=== PATIENT | female | born 1960 | race Caucasian/White ===

== ENCOUNTER 2018-03-20 09:26 | Emergency (ER) | payer OTHER ==
[~2018-03-20] VITALS: Ht 167.6 cm; Wt 101.6 kg
[2018-03-20 09:36] VITALS: BP 133/67
--- NOTE | 2018-03-20 09:43 | NUR ---
PT AMBULATES TO BED 9
--- NOTE | 2018-03-20 09:46 | NUR ---
gave report to Breanna ONEAL
--- NOTE | 2018-03-20 09:46 | NUR ---
PT MOVED TO BED 6
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
--- NOTE | 2018-03-20 10:03 | NUR ---
Patient being evaluated by physician at bedside.
[2018-03-20] MEDS ORDERED: NACL 0.9% 1,000 ML IV SCH (10:37)
[2018-03-20] MEDS ORDERED: METOCLOPRAMIDE 10 MG/2 ML INJ VIAL IVP ONE (10:40)
[2018-03-20] MEDS ORDERED: KETOROLAC 30 MG/ML VIAL IVP ONE (10:40)
--- NOTE | 2018-03-20 11:09 | NUR ---
ultrasound at bedside
[2018-03-20 11:23] LABS: BASOPHILS % (AUTO) 0.5 % (0.0-2.0); EOSINOPHILS # (AUTO) 0.2 K/uL (0-0.4); EOSINOPHILS % (AUTO) 2.6 % (0.0-4.0); HEMATOCRIT 42.5 % (36-48); HEMOGLOBIN 14.2 g/dL (12.0-16.0); LYMPHOCYTES # (AUTO) 1.3 K/uL (2.5-16.5); LYMPHOCYTES % (AUTO) 15.6 % (20.5-51.1); MEAN CORPUSCULAR HEMOGLOBIN 32 pg (27-31); MEAN CORPUSCULAR HGB CONC 34 g/dL (33-37); MONOCYTES # (AUTO) 0.4 K/uL (0.8-1.0); MONOCYTES % (AUTO) 5.4 % (1.7-9.3); NEUTROPHILS # (AUTO) 6.2 K/uL (1.8-7.7); NEUTROPHILS % (AUTO) 75.9 % (42.2-75.2); PLATELET COUNT (AUTO) 206 K/uL (140-450); RED BLOOD CELL COUNT(AUTO) 4.47 MIL/uL (4.20-5.40); RED CELL DISTRIBUTION WIDTH 12.9 % (11.6-13.7); WHITE BLOOD COUNT (AUTO) 8.2 K/uL (4.8-10.8)
[2018-03-20 11:43] LABS: ANION GAP 10.9 (8-16); CARBON DIOXIDE 27.7 mmol/L (21-32); CREATININE 0.7 mg/dL (0.6-1.3); POTASSIUM 3.6 mmol/L (3.5-5.1)
[2018-03-20 11:48] LABS: ALBUMIN 3.1 g/dL (3.4-5.0); TOTAL BILIRUBIN 0.5 mg/dL (0.0-1.0)
--- NOTE | 2018-03-20 12:05 | NUR ---
AMBULATED TO THE [facility] WITH STEADY GAIT
--- NOTE | 2018-03-20 12:50 | NUR ---
PT AMBULATED TO RESTROOM WITH STEADY GAIT
--- NOTE | 2018-03-20 13:05 | NUR ---
LAB WAS NOTIFIED WE ARE WAITING FOR URINE SAMPLE RESULTS
[2018-03-20 14:17] VITALS: BP 126/67
--- NOTE | 2018-03-20 14:17 | NUR ---
Patient discharged with v/s stable. Written and verbal after care instructions given and explained. Patient alert, oriented and verbalized understanding of instructions. Ambulatory with steady gait. All questions addressed prior to discharge. ID band removed. Patient advised to follow up with PMD. Rx of NAPROSYN , CEPHALEXIN, ZOFRAN ODT given. Patient educated on indication of medication including possible reaction and side effects. Opportunity to ask questions provided and answered.
[2018-03-20 14:28] LABS: BILIRUBIN,URINE NEGATIVE (NEGATIVE); BLOOD, URINE NEGATIVE (NEGATIVE); COLOR,URINE YELLOW (YELLOW); LEUKOCYTE ESTERASE ,URINE 1+ (NEGATIVE); NITRITE, URINE NEGATIVE (NEGATIVE); PH,URINE 5.5 (5.0-9.0); UGLUCOSE NEGATIVE (NEGATIVE)
[2018-03-20 14:33] LABS: APPEARANCE,URINE HAZY (CLEAR)
[2018-03-20 14:43] LABS: RBC,URINE NONE SEEN /HPF (0-5); WBC,URINE 0-5 (RARE) /HPF (0-5)
== END 2018-03-20 14:17 | disposition home or self-care (01) ==
LOC: EDBD 09:26 → MED 09:26
DX: N12 Tubulo-interstitial nephritis, not specified as acute or chronic (principal)
CPT/HCPCS: 36415; 76770; 80053; 81001; 81025; 83605; 85025; 87040; 87086; 96361; 96374; 96375; 99285; J1885; J2765; J7030; Q0092

== ENCOUNTER 2019-01-09 11:32 | Emergency (ER) | payer MEDICAID, OTHER ==
[~2019-01-09] VITALS: Ht 167.6 cm; Wt 100.2 kg
[2019-01-09 11:40] VITALS: BP 152/80
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
--- NOTE | 2019-01-09 11:50 | NUR ---
TO BED 7 WITH
[2019-01-09] MEDS ORDERED: LISINOPRIL PO (11:58)
[2019-01-09] MEDS ORDERED: METFORMIN PO (11:58)
--- NOTE | 2019-01-09 12:19 | NUR ---
DR LOUISE AT BEDSIDE EVALUATING PT
[2019-01-09] MEDS ORDERED: HYDROcodone/APAP 5/325 MG 1 TAB TAB PO ONE (12:25)
[2019-01-09] MEDS ORDERED: KETOROLAC 60 MG/2 ML VIAL IM ONE (12:25)
--- NOTE | 2019-01-09 12:38 | NUR ---
XRAY AT BEDSIDE
--- NOTE | 2019-01-09 13:00 | NUR ---
PT STATES PAIN 3/10 AFTER MEDICATION.
[2019-01-09 13:45] VITALS: BP 135/70
--- NOTE | 2019-01-09 13:45 | NUR ---
Patient discharged with v/s stable. Written and verbal after care instructions given and explained. Patient alert, oriented and verbalized understanding of instructions. Ambulatory with steady gait. All questions addressed prior to discharge. ID band removed. Patient advised to follow up with PMD. Rx of NORCO, NAPROSYN, BACITRACIN given. Patient educated on indication of medication including possible reaction and side effects. Opportunity to ask questions provided and answered.
== END 2019-01-09 13:45 | disposition home or self-care (01) ==
LOC: MED 11:32
DX: S00.93XA Contusion of unspecified part of head, initial encounter (principal); S30.810A Abrasion of lower back and pelvis, initial encounter; R07.89 Other chest pain; E11.9 Type 2 diabetes mellitus without complications; I10 Essential (primary) hypertension; Z79.84 Long term (current) use of oral hypoglycemic drugs; Z79.899 Other long term (current) drug therapy; V49.40XA Driver injured in collision with unspecified motor vehicles in traffic accident, initial encounter; Y93.89 Activity, other specified; Y92.89 Other specified places as the place of occurrence of the external cause; Y99.8 Other external cause status
CPT/HCPCS: 71045; 96372; 99283; J1885; Q0092

== ENCOUNTER 2020-08-01 07:49 | Day surgery (SDC) | payer OTHER, SELFPAY ==
[~2020-08-01] VITALS: Ht 167.6 cm; Wt 99.8 kg
[~2020-08-01 07:49] MED LIST: LISINOPRIL PO; METFORMIN PO
[2020-08-01] MEDS ORDERED: fentaNYL citrate 0.05 MG/ML VIAL ONE (08:47)
[2020-08-01] MEDS ORDERED: MIDAZOLAM 5 MG/5 ML VIAL ONE (08:48)
[2020-08-01] MEDS ORDERED: LIDOCAINE 2% 100 MG/5 ML UJET TP ONE (08:48)
[2020-08-01] MEDS ORDERED: MIDAZOLAM 2 MG/2 ML VIAL IVP ONE (09:35)
[2020-08-01] MEDS ORDERED: fentaNYL citrate 0.05 MG/ML VIAL IVP ONE (09:35)
== END 2020-08-01 10:20 | disposition home or self-care (01) ==
LOC: MDS 07:49 → MMU 07:50 → MDS 10:20
PROVIDERS: ATTEND Internal Medicine Gastroenterology
DX: K62.5 Hemorrhage of anus and rectum (principal); I85.10 Secondary esophageal varices without bleeding; K57.30 Diverticulosis of large intestine without perforation or abscess without bleeding; K76.6 Portal hypertension; K31.89 Other diseases of stomach and duodenum; K74.69 Other cirrhosis of liver; K64.9 Unspecified hemorrhoids; R94.5 Abnormal results of liver function studies; K76.0 Fatty (change of) liver, not elsewhere classified; I10 Essential (primary) hypertension; E11.9 Type 2 diabetes mellitus without complications; Z79.84 Long term (current) use of oral hypoglycemic drugs; Z79.899 Other long term (current) drug therapy; Z20.828 Contact with and (suspected) exposure to other viral communicable diseases
CPT/HCPCS: J2250; J3010; J7030; U0003

== ENCOUNTER 2021-07-01 22:29 | Emergency (ER) | payer OTHER, SELFPAY ==
--- NOTE | 2021-07-01 23:10 | NUR ---
PATIENT SEEN IN THE ROOM, RESTING COMFORTABLY, DENIED ANY PAIN. PATIENT WITH COMPLAINT OF VAGINAL BLEED FOR 2 HOURS AND CONCERNED DUE TO LOW PLATELET LEVELS. PATIENT BREATHING AT 100% AT RA, NO PAIN. DENIES ANY OTHER CONCERNS OR DISCOMFORT. PATIENT IN APPARENT ACUTE DISTRESS. ALL SAFETY MEASURES INCLUDING BED AT LOWEST POSITION APPLIED. WILL CONTINUE TO MONITOR. [facility]
[2021-07-02 00:49] LABS: APPEARANCE,URINE SL CLOUDY (CLEAR); BILIRUBIN,URINE NEGATIVE (NEGATIVE); BLOOD, URINE 2+ (NEGATIVE); COLOR,URINE YELLOW (YELLOW); LEUKOCYTE ESTERASE ,URINE 1+ (NEGATIVE); NITRITE, URINE NEGATIVE (NEGATIVE); PH,URINE 6.5 (5.0-9.0); UGLUCOSE 1+ (NEGATIVE)
[2021-07-02 00:53] LABS: RBC,URINE 0-5 /HPF (0-5); WBC,URINE TOO MANY TO COUNT /HPF (0-5)
[2021-07-02 01:15] LABS: ANION GAP 11.6 (8-16); CARBON DIOXIDE 28.1 mmol/L (21-32); POTASSIUM 3.7 mmol/L (3.5-5.1)
[2021-07-02 01:16] LABS: ALBUMIN 3.4 g/dL (3.4-5.0); CREATININE 0.6 mg/dL (0.6-1.3); TOTAL BILIRUBIN 0.8 mg/dL (0.0-1.0)
[2021-07-02 01:17] LABS: HEMATOCRIT 41.5 % (36-48); HEMOGLOBIN 14.3 g/dL (12.0-16.0); MEAN CORPUSCULAR HEMOGLOBIN 33 pg (27-31); MEAN CORPUSCULAR HGB CONC 35 g/dL (33-37); MEAN CORPUSCULAR VOLUME 96.3 fL (80-94); PLATELET COUNT (AUTO) 124 K/uL (140-450); RED BLOOD CELL COUNT(AUTO) 4.31 MIL/uL (4.20-5.40); RED CELL DISTRIBUTION WIDTH 13.3 % (11.6-13.7); WHITE BLOOD COUNT (AUTO) 7.1 K/uL (4.8-10.8)
[2021-07-02 01:18] LABS: BASOPHILS % (AUTO) 0.3 % (0.0-2.0); EOSINOPHILS # (AUTO) 0.2 K/uL (0-0.4); EOSINOPHILS % (AUTO) 2.8 % (0.0-4.0); LYMPHOCYTES # (AUTO) 1.2 K/uL (2.5-16.5); LYMPHOCYTES % (AUTO) 16.8 % (20.5-51.1); MONOCYTES # (AUTO) 0.5 K/uL (0.8-1.0); NEUTROPHILS # (AUTO) 5.2 K/uL (1.8-7.7); NEUTROPHILS % (AUTO) 73.1 % (42.2-75.2)
[2021-07-02] MEDS ORDERED: CEPH-588 PO (02:55)
[2021-07-02] MEDS ORDERED: PYR100 PO (02:55)
--- NOTE | 2021-07-02 03:34 | NUR ---
Patient discharged with v/s stable. Written and verbal after care instructions given and explained. Patient alert, oriented and verbalized understanding of instructions. Ambulatory with steady gait. All questions addressed prior to discharge. ID band removed. Patient advised to follow up with PMD. Rx of KEFLEX AND PYRIDIUM given. Patient educated on indication of medication including possible reaction and side effects. Opportunity to ask questions provided and answered.
[2021-07-02 03:37] VITALS: BP 186/77
== END 2021-07-02 03:34 | disposition home or self-care (01) ==
LOC: MED 22:40
DX: O72.1 Other immediate postpartum hemorrhage (principal); N39.0 Urinary tract infection, site not specified; E11.9 Type 2 diabetes mellitus without complications; I10 Essential (primary) hypertension; Z79.899 Other long term (current) drug therapy; Z79.84 Long term (current) use of oral hypoglycemic drugs
CPT/HCPCS: 36415; 76830; 76856; 80053; 81001; 85025; 85730; 86900; 86901; 87086; 99284

== ENCOUNTER 2022-10-18 14:56 | Emergency (ER) | payer OTHER ==
[~2022-10-18] VITALS: Ht 158.8 cm; Wt 89.8 kg
[~2022-10-18 14:56] MED LIST changes: +CEPH-588 PO; +PYR100 PO
[2022-10-18 14:58] VITALS: BP 98/48
--- NOTE | 2022-10-18 15:24 | NUR ---
ASSUMED PATIENT CARE, NURSING ASSESSMENT COMPLETED.
--- NOTE | 2022-10-18 15:28 | NUR ---
LABS DRAWN BY BLASTING GANG MINER.
[2022-10-18 15:35] LABS: BASOPHILS % (AUTO) 0.5 % (0.0-2.0); EOSINOPHILS # (AUTO) 0.1 K/uL (0-0.4); HEMATOCRIT 43.7 % (36-48); HEMOGLOBIN 15.3 g/dL (12.0-16.0); LYMPHOCYTES # (AUTO) 1.1 K/uL (2.5-16.5); LYMPHOCYTES % (AUTO) 18.2 % (20.5-51.1); MEAN CORPUSCULAR HEMOGLOBIN 33 pg (27-31); MEAN CORPUSCULAR HGB CONC 35 g/dL (33-37); MEAN CORPUSCULAR VOLUME 95.5 fL (80-94); MONOCYTES # (AUTO) 0.3 K/uL (0.8-1.0); MONOCYTES % (AUTO) 5.2 % (1.7-9.3); NEUTROPHILS # (AUTO) 4.5 K/uL (1.8-7.7); NEUTROPHILS % (AUTO) 74.1 % (42.2-75.2); PLATELET COUNT (AUTO) 113 K/uL (140-450); RED BLOOD CELL COUNT(AUTO) 4.58 MIL/uL (4.20-5.40); RED CELL DISTRIBUTION WIDTH 13.3 % (11.6-13.7); WHITE BLOOD COUNT (AUTO) 6.1 K/uL (4.8-10.8)
[2022-10-18 16:01] LABS: ALBUMIN 3.8 g/dL (3.4-5.0); ANION GAP 12.9 (8-16); CARBON DIOXIDE 30.1 mmol/L (21-32); CREATININE 0.6 mg/dL (0.6-1.3); TOTAL BILIRUBIN 0.8 mg/dL (0.0-1.0)
[2022-10-18 20:08] VITALS: BP 119/55
--- NOTE | 2022-10-18 20:10 | NUR ---
Patient discharged with v/s stable. Written and verbal after care instructions given and explained. Patient verbalized understanding. Ambulatory with steady gait. All questions addressed prior to discharge. Advised to follow up with PMD. PT LEFT WITH HER BELONGINIGS
--- NOTE | 2022-10-18 20:19 | NUR ---
Note madan in EDM - 10/18/22 at 2020 by [id number] PT HAS ABD PAIN, THE PAIN REALTED TO MUSCLE RESTARIN AFTER VOMITNG AND WITH EPSISODE OF NEASUEA AND VOMITTING ALL DAY. AWAKE AND ALERT X 4, SEEMS LETHARGIC. AMBUALTORY
== END 2022-10-18 20:08 | disposition home or self-care (01) ==
LOC: MED 14:56
DX: R00.2 Palpitations (principal); R07.9 Chest pain, unspecified; E11.9 Type 2 diabetes mellitus without complications; I10 Essential (primary) hypertension; E07.9 Disorder of thyroid, unspecified; Z79.84 Long term (current) use of oral hypoglycemic drugs; Z79.899 Other long term (current) drug therapy
CPT/HCPCS: 36415; 71045; 80053; 83880; 84484; 85025; 85610; 85730; 93005; 99285; Q0092